=== PATIENT | female | born 1980 | race Caucasian/White ===

== ENCOUNTER 2019-11-06 22:09 | Emergency (ER) | payer OTHER ==
[~2019-11-06] VITALS: Ht 165.1 cm; Wt 108.9 kg
[2019-11-06] MEDS ORDERED: HYDROMORPHONE 1 MG/1 ML DISP.SYRIN IV ONE (22:45)
[2019-11-06] MEDS ORDERED: ONDANSETRON 4 MG/2 ML VIAL IV ONE (22:45)
[2019-11-06] MEDS ORDERED: IV NORMAL SALINE 1000 ML BAG IV ONE (22:45)
[2019-11-06] MEDS ORDERED: HYDROMORPHONE 2 MG/1 ML DISP.SYRIN ONE (22:46)
[2019-11-06] MEDS ORDERED: ONDANSETRON 4 MG/2 ML VIAL ONE (22:46)
[2019-11-06 22:57] LABS: BASOPHILS % (AUTO) 0.4 % (0.0-2.0); EOSINOPHILS # (AUTO) 0.1 K/uL (0.0-0.7); EOSINOPHILS % (AUTO) 1.5 % (0.0-7.0); HEMATOCRIT 46.3 % (31.2-41.9); LYMPHOCYTES # (AUTO) 0.9 K/uL (20.0-40.0); LYMPHOCYTES % (AUTO) 10.4 % (20.5-51.5); MEAN CORPUSCULAR HEMOGLOBIN 34.7 uug (24.7-32.8); MEAN CORPUSCULAR HGB CONC 35 g/dL (32.3-35.6); MONOCYTES # (AUTO) 0.3 K/uL (2.0-10.0); MONOCYTES % (AUTO) 3.6 % (0.0-11.0); NEUTROPHILS # (AUTO) 7.6 K/uL (1.8-8.9); NEUTROPHILS % (AUTO) 84.1 % (38.5-71.5); PLATELET COUNT (AUTO) 266 K/uL (179-408); RED BLOOD CELL COUNT(AUTO) 4.63 MIL/uL (3.63-4.92); WHITE BLOOD COUNT (AUTO) 9.1 K/uL (3.8-11.8)
[2019-11-06 23:01] LABS: *BLOOD, URINE 2+ (NEGATIVE); *COLOR,URINE YELLOW (YELLOW); *KETONES,URINE TRACE (NEGATIVE); LEUKOCYTE ESTERASE ,URINE NEGATIVE (NEGATIVE); NITRITE, URINE NEGATIVE (NEGATIVE); UGLUCOSE NEGATIVE (NEGATIVE)
[2019-11-06 23:04] LABS: *BILIRUBIN,URIN 2+ (NEGATIVE); *CLARITY,URINE HAZY (CLEAR)
[2019-11-06] MEDS ORDERED: FLUO10CA27 PO (23:07)
[2019-11-06] MEDS ORDERED: HYDR12.55 PO (23:07)
[2019-11-06] MEDS ORDERED: LISI10TA5 PO (23:07)
[2019-11-06] MEDS ORDERED: CHOL3000 PO (23:07)
[2019-11-06] MEDS ORDERED: SIMV-49 PO (23:07)
[2019-11-06 23:11] LABS: BACTERIA,URINE MANY /HPF (NONE SEEN); MUCUS,URINE MANY /LPF (0-FEW); SQUAMOUS EPITHELIAL CELL,UR MODERATE /HPF (NONE SEEN); WBC,URINE 0-3 /HPF (0-3)
[2019-11-06 23:12] LABS: CARBON DIOXIDE 30 mmol/L (21-32); CHLORIDE 98 mmol/L (98-107); CREATININE 0.9 mg/dL (0.6-1.3); GLUCOSE 115 mg/dL (74-106); POTASSIUM 3.8 mmol/L (3.5-5.1); UREA NITROGEN, BLOOD 10 mg/dL (7-18)
[2019-11-06 23:16] LABS: ALANINE AMINOTRANSFERASE 44 U/L (14-59); ALKALINE PHOSPHATASE 71 U/L (50-136); ASPARTATE AMINOTRANSFERASE 83 U/L (15-37); BILIRUBIN,DIRECT 0.3 mg/dL (0.0-0.2); BILIRUBIN,TOTAL 0.8 mg/dL (0.2-1.0); LIPASE 233 U/L (73-393); TOTAL PROTEIN, SERUM 8.3 g/dL (6.4-8.2)
--- NOTE | 2019-11-06 23:43 | NUR ---
WAITING CALL BACK FROM [facility] ([facility]) WORKING DX: [facility] STABLE FOR TRANSFER
--- NOTE | 2019-11-06 23:58 | NUR ---
alice(reading) faxed clinicals to [phone] call back [phone] waiting call back for confirmation
--- NOTE | 2019-11-07 00:19 | NUR ---
CALL BACK [facility]: PT OK TO ADMIT TO [facility] RECEIVING MD: DR HARLEY WAITING CALL BACK [facility] [employer] ON CONFIRMATION OF TRANSPORT
--- NOTE | 2019-11-07 00:30 | NUR ---
PT DECIDED NOT TO BE TRANSFERED TO [facility] AWARE
--- NOTE | 2019-11-07 00:43 | NUR ---
Patient discharged to home in stable conditon. Written and verbal after care instructions given. Patient verbalizes understanding of instructions. AMBULATORY W/ STABLE GAIT ALL BELONGINGS W/ PT IV DC DRESSED PT WILL TAKE UBER TO GO HOME
[2019-11-07 00:47] VITALS: BP 108/75
== END 2019-11-07 00:47 | disposition home or self-care (01) ==
LOC: ER 22:14
DX: K80.40 Calculus of bile duct with cholecystitis, unspecified, without obstruction (principal); I10 Essential (primary) hypertension; E78.00 Pure hypercholesterolemia, unspecified; F32.9 Major depressive disorder, single episode, unspecified; Z60.2 Problems related to living alone; Z79.899 Other long term (current) drug therapy
CPT/HCPCS: 36415; 71045; 76705; 80048; 80076; 81000; 81001; 83605; 83690; 84484; 84702; 85025; 85730; 87086; 93005; 96361; 96374; 96375; 99285; J1170; J2405; 70030-TC; A4663; J7030